=== PATIENT | female | born 1995 | race Hispanic/Latino ===

== ENCOUNTER 2019-12-20 06:31 | Emergency (ER) | payer BC ==
--- OUTSIDE RECORDS SUMMARY | 2019-12-20 06:33 | XMS REPORT | Summary of Care ---
:1995 Author Organization [facility] Address [address] [place] [address] Care Team Providers Name Role Phone Pcp, Patient Does Not Have A Primary Care Provider +[id number] 0-0000 Reason for Visit Reason Comments ROUTINE VISIT Encounter Details Date Type Department Care Team Description 11/30/2019 Routine [facility] Women's Alessia Ren, Encounter for supervision of normal first in third trimester (Primary Dx); Visit Healthcare Group- 28 weeks gestation of ; [place] [address] Need for diphtheria-tetanus- pertussis (Tdap) vaccine; [address] [facility] [address] Heartburn during in third [facility] [address] [place] [address] [phone] Allergies No Known Allergiesdocumented as of this encounter (statuses as of 12/01/2019) Medications Medication Sig Dispensed Refills Start Date End Date Status clindamycin phosphate 1 Apply to 0 Active % glqd area(s). vit/iron Take by mouth. 0 Active fum/folic ac ( 1 + 1 ORAL) famotidine 20 mg Take 1 tablet by 60 tablet 2 12/01/2019 Active tabletIndications: mouth 2 (two) Heartburn during times daily as in third needed for trimester Heartburn. documented as of this encounter (statuses as of 12/01/2019) Active Problems Estimated Date of Delivery Comments Yes 02/19/2020 Based on Ultrasound, Entered from OB Ultrasound Reporting. No known active problemsdocumented as of this encounter (statuses as of 12/01/2019) Immunizations Name Administration Dates Next Due TDAP 11/30/2019 documented as of this encounter Social History Tobacco Use Types Packs/Day Years Used Date Never Smoker Smokeless Tobacco: Never Used Alcohol Use Drinks/Week oz/Week Comments Not Currently 0 Standard drinks or equivalent 0.0 rare Estimated Date of Delivery Comments Yes 02/19/2020 Based on Ultrasound, Entered from OB Ultrasound Reporting. Sex Assigned at Date Recorded Not on file COVID-19 Exposure Response Date Recorded In the last month, have you been in contact with No / Unsure 11/30/2019 3:46 PM CDT someone who was confirmed or suspected to have Coronavirus / COVID-19? documented as of this encounter Last Filed Vital Signs Vital Sign Reading Time Taken Comments Blood Pressure 110/67 11/30/2019 3:33 PM CDT Pulse 84 11/30/2019 3:33 PM CDT Temperature - - Respiratory Rate - - Oxygen Saturation - - Inhaled Oxygen Concentration - - Weight 64.5 kg (142 lb 4.8 oz) 11/30/2019 3:33 PM CDT Height 162.6 cm (5' 4") 11/30/2019 3:33 PM CDT Body Mass Index 24.43 11/30/2019 3:33 PM CDT documented in this encounter Miscellaneous Notes OB Summary Note - Alessia Ren MD - 11/30/2019 3:30 PM CDTAge: 24 year old GA: 28w3d Routine visit. C/o occasional RUQ pain, increased nausea and GERD symptoms. She is not taking any meds for nausea/GERD. Thinks RUQ pain may be due to pressure of baby on ribs, as only occurs when she is sitting, and stretching to side relievs thee pain. Denies HAs, N/V, abdominal pain, ctx, vag bleeding, leakage of fluid. +Active movements. FH: 28 cm FHT: 155 bpm - Tdap given today. - 1-hr GTT/CBC/HIV/syph drawn today. - Pepcid prescribed for GERD/nausea. - Discussed epidural/pain management options during labor per patient's questions. - RTC in 2-4 weeks. Alessia Ren MD 11/30/2019 3:47 PM ddendum Note - Alessia Ren MD - 11/30/2019 3:30 PM CDT Addended by: ALESSIA REN MD on: 12/01/2019 11:13 AM Modules accepted: Orders documented in this encounter Plan of Treatment Date Type Specialty Care Team Description 12/21/2019 Routine Obstetrics & Alessia Ren MD Visit Gynecology [address] [address] [address] [place], [place] [address] [phone] Name Type Priority Associated Diagnoses Date/Ti me GALV ONLY - SYPHILIS LAB Routine 28 weeks gestation o f 11/30/2019 4:42 PM CDT IGG/IGM Name Type Priority Associated Diagnoses Order S chedule GALV ONLY - SYPHILIS LAB Routine 28 weeks gestation o f 1 Occurrences starting IGG/IGM 11/30/2019 unti l 11/29/2020 Health Maintenance Due Date Last Done Comments INFLUENZA VACCINE (#1) 2019 CHLAMYDIA SCREENING 06/27/2020 06/28/2019, 03/30/2017, 11/24/2015 HPV VACCINES (1 - 2-dose 09/16/2020 Postpon ed from 2006 series) ( or ) Depression Screening 10/25/2020 10/26/2019 PAP SMEAR 06/27/2022 06/28/2019, 03/30/2017 DTaP,Tdap,and Td Vaccines (2 11/29/2029 11/30/2019 - Td) PNEUMOCOCCAL 0-64 YEARS Aged Out No longe r eligible based COMBINED SERIES on patient's age to complete this to pic documented as of this encounter Procedures Procedure Name Priority Date/Time Associated Diagnosis Comme nts HIV 1/2 AG-AB WITH Routine 11/30/2019 4:42 PM 28 weeks gestat ion Results for this REFLEX CDT of procedure are i n the results section. CBC WITH DIFF Routine 11/30/2019 4:42 PM 28 weeks gestation R esults for this CDT of procedure are i n the results section. GLUCOSE 1 HOUR POST Routine 11/30/2019 4:42 PM 28 weeks gesta tion Results for this PRANDIAL CDT of procedure are i n the results section. TDAP VACCINE, >11 Routine 11/30/2019 3:47 PM 28 weeks gestati on YRS, IM CDT of documented in this encounter Results HIV 1/2 AG-AB WITH REFLEX (11/30/2019 4:42 PM CDT) Pathologist Sig [facility] HIV 1/2 Ag-Ab with Negative Negative [facility] Reflex SERVICES HIV Semi-quantitative 0.06 [facility] Specimen Blood - VENOUS Narrative Performed At Non-reactive for HIV-1 antigen and HIV-1/HIV-2 antibod ies. [facility] No laboratory evidence of HIV infection. Repeat in 2-4 weeks if acute HIV infection is suspected. Performing Organization Address City/State/Zipcode Phone Number [facility] CLIA: [id number] [place] [address] [place] [address] GLUCOSE 1 HOUR POST PRANDIAL (11/30/2019 4:42 PM CDT) Pathologist Sig [facility] GLUC 1 HR 124 120 - 170 mg/dL [facility] Specimen Blood - VENOUS Performing Organization Address City/[facility]/Zipcode Phone Number [facility] CLIA: [id number] [place] [address] [place] [address] CBC WITH DIFF (11/30/2019 4:42 PM CDT) Pathologist Sig [facility] WBC 10.42 4.30 - 11.10 [facility] 10*3/L SERVICES RBC 3.76 (L) 3.93 - 5.25 [facility] 10*6/L SERVICES HGB 11.3 (L) 11.6 - 15.0 [facility] g/dL SERVICES HCT 34.2 (L) 35.7 - 45.2 % [facility] MCV 91.0 80.6 - 95.5 fL [facility] SERVICES MCH 30.1 25.9 - 32.8 pg [facility] MCHC 33.0 31.6 - 35.1 [facility] g/dL SERVICES RDW-SD 40.8 39.0 - 49.9 fL [facility] SERVICES RDW-CV 12.3 12.0 - 15.5 % [facility] SERVICES PLT 342 166 - 358 [facility] 10*3/L SERVICES MPV 9.8 9.5 - 12.9 fL [facility] NRBC/100 WBC 0.0 0.0 - 10.0 /100 [facility] WBCs SERVICES NRBC x10^3 <0.01 10*3/L [facility] SERVICES GRAN MAT (NEUT) % 69.8 % [facility] IMM GRAN % 0.70 % [facility] LYMPH % 22.2 % [facility] MONO % 5.8 % [facility] EOS % 1.2 % [facility] BASO % 0.3 % [facility] GRAN MAT x10^3(ANC) 7.29 (H) 1.88 - 7.09 [facility] 10*3/uL SERVICES IMM GRAN x10^3 0.07 (H) 0.00 - 0.06 [facility] 10*3/uL SERVICES LYMPH x10^3 2.31 1.32 - 3.29 [facility] 10*3/uL SERVICES MONO x10^3 0.60 0.33 - 0.92 [facility] 10*3/uL SERVICES EOS x10^3 0.12 0.03 - 0.39 [facility] 10*3/uL SERVICES BASO x10^3 0.03 0.01 - 0.07 [facility] 10*3/uL SERVICES Specimen Blood - VENOUS Performing Organization Address City/State/Zipcode Phone Number [facility] CLIA: [id number] [place] [address] [place] [address] documented in this encounter Visit Diagnoses Diagnosis Encounter for supervision of normal firs t in third trimester - Primary Supervision of normal first 28 weeks gestation of state, incidental Need for whlnosbler-yahtinh-twwswjsqr (T dap) vaccine Need for prophylactic vaccination with c ombined kruxgdcyql-pophvta-eqtqqqtcm (DTP) vaccine Heartburn during in third trim caden documented in this encounter Insurance Payer Benefit Plan Subscriber ID Effective Dates Phone Address Type / Group [facility] [id number] 2017-Nati [phone] [address] PPO/POS [place] - OUT OF 7 [id number] [place] [address] (Work) [id number] documented as of this encounter
--- OUTSIDE RECORDS SUMMARY | 2019-12-20 06:33 | XMS REPORT | Summary of Care ---
:1995 Author Organization [facility] Address [address] [place] [address] Care Team Providers Name Role Phone Pcp, Patient Does Not Have A Primary Care Provider +1-000-00 0-0000 Reason for Visit Reason Comments ROUTINE VISIT Encounter Details Date Type Department Care Team Description 11/30/2019 Routine [facility] Women's Nedra Ramsey, Encounter for supervision of normal first in third trimester (Primary Dx); Visit Healthcare Group- 28 weeks gestation of ; [place] [address] Need for diphtheria-tetanus- pertussis (Tdap) vaccine [address] [facility] [address], [address] [place] [phone] Allergies No Known Allergiesdocumented as of this encounter (statuses as of 11/30/2019) Medications Medication Sig Dispensed Refills Start Date End Date Status clindamycin phosphate 1 Apply to 0 Active % glqd area(s). vit/iron Take by mouth. 0 Active fum/folic ac ( 1 + 1 ORAL) documented as of this encounter (statuses as of 11/30/2019) Active Problems Estimated Date of Delivery Comments Yes 02/19/2020 Based on Ultrasound, Entered from OB Ultrasound Reporting. No known active problemsdocumented as of this encounter (statuses as of 11/30/2019) Immunizations Name Administration Dates Next Due TDAP [...] encounter Miscellaneous Notes OB Summary Note - Nedra Ramsey MD - 11/30/2019 3:30 PM CDTAge: 24 year old GA: 28w3d Routine visit. No complaints today - denies HAs, N/V, abdominal pain, ctx, vag bleeding, leakage of fluid. +Active movements. FH: 28 cm FHT: 155 bpm - Tdap given today. - 1-hr GTT/CBC/HIV/syph drawn today. - Discussed epidural/pain management options during labor per patient's questions. - RTC in 2-4 weeks. Nedra Ramsey MD 11/30/2019 3:47 PM documented in this encounter Plan of Treatment Date Type Specialty Care Team Description 12/21/2019 Routine Obstetrics & Nedra Ramsey MD Visit Gynecology [address] [address] [address] [place], [place] [address] [phone] Name Type Priority Associated Diagnoses Date/Ti me CBC WITH DIFF LAB Routine 28 weeks gestation of 11/29 4:42 PM CDT GLUCOSE 1 HOUR POST LAB Routine 28 weeks gestation of 11/30/2019 4:42 PM CDT PRANDIAL HIV 1/2 AG-AB WITH LAB Routine 28 weeks gestation of 11/30/2019 4:42 PM CDT REFLEX GALV ONLY - SYPHILIS LAB Routine 28 weeks gestation o f 11/30/2019 4:42 PM CDT IGG/IGM Name Type Priority Associated Diagnoses Order S chedule CBC WITH DIFF LAB Routine 28 weeks gestation of Expec anastasiia: 11/30/2019, Expires: 2020 GLUCOSE 1 HOUR POST LAB Routine 28 weeks gestation of Expected: 11/30/2019, PRANDIAL Expires: 2020 HIV 1/2 AG-AB WITH LAB Routine 28 weeks gestation of 1 Occurrences starting REFLEX 11/30/2019 unti l 11/29/2020 GALV ONLY - SYPHILIS LAB Routine 28 weeks gestation o f 1 Occurrences starting IGG/IGM 11/30/2019 unti l 11/29/2020 Health Maintenance Due Date Last Done Comments INFLUENZA VACCINE (#1) 2019 CHLAMYDIA SCREENING 06/27/2020 06/28/2019, 03/30/2017, 11/24/2015 DTaP,Tdap,and Td Vaccines (1 06/27/2020 Pos tponed from 2014 - Tdap) (Alternative Zoran delines) HPV VACCINES (1 - 2-dose 09/16/2020 Postpon ed from 2006 series) ( or ) Depression Screening 10/25/2020 10/26/2019 PAP SMEAR 06/27/2022 06/28/2019, 03/30/2017 PNEUMOCOCCAL 0-64 YEARS Aged Out No longe r eligible based COMBINED SERIES on patient's age to complete this to [facility] documented as of this encounter Procedures Procedure Name Priority Date/Time Associated Diagnosis Comme nts TDAP VACCINE, >11 YRS, Routine 11/30/2019 3:47 PM 28 weeks [address] station of IM CDT documented in this encounter Results Not on filedocumented in this encounter Visit Diagnoses Diagnosis Encounter for supervision of normal firs t in third trimester - Primary Supervision of normal first 28 weeks gestation of state, incidental Need for owcwxjlcdu-gszsvfx-zlqtlzcte (T dap) vaccine Need for prophylactic vaccination with c ombined tjikwwkovr-pqfuueb-stlfarrsg (DTP) vaccine documented in this encounter Insurance Payer Benefit Plan Subscriber ID Effective Dates Phone Address Type / Group [facility] [id number] 2017-Nati [phone] [address] PPO/POS [place] - OUT OF nt 7 [id number] [place] [address] (Work) [id number] documented as of this encounter
--- OUTSIDE RECORDS SUMMARY | 2019-12-20 06:33 | XMS REPORT | Summary of Care ---
:1995 Author Organization [facility] Address [address] [place] [address] Care Team Providers Name Role Phone Pcp, Patient Does Not Have A Primary Care Provider +1-000-00 0-0000 Reason for Visit Reason Comments ROUTINE VISIT Encounter Details Date Type Department Care Team Description 10/26/2019 Routine [facility] Women's Nichole Piper Encounter for Visit Health Care, TYREE Vaughn supervision of [address] first [address] [facility]. in second 3rd Floor [place], [place] trimester ([place] [phone] Dx) [phone] Allergies No Known Allergiesdocumented as of this encounter (statuses as of 10/26/2019) Medications Medication Sig Dispensed Refills Start Date End Date Status clindamycin phosphate 1 Apply to 0 Active % glqd area(s). vit/iron Take by mouth. 0 Active fum/folic ac ( 1 + 1 ORAL) documented as of this encounter (statuses as of 10/26/2019) Active Problems Estimated Date of Delivery Comments Yes 02/19/2020 Based on Ultrasound, Entered from OB Ultrasound Reporting. No known active problemsdocumented as of this encounter (statuses as of 10/26/2019) Social History Tobacco Use Types Packs/Day Years Used Date Never Smoker Smokeless Tobacco: Never Used Alcohol Use Drinks/Week oz/Week Comments Not Currently 0 Standard drinks or equivalent 0.0 rare Estimated Date of Delivery Comments Yes 02/19/2020 Based on Ultrasound, Entered from OB Ultrasound Reporting. Sex Assigned at Date Recorded Not on file Job Start Date Occupation Industry Not on file Not on file Not on file Travel History Travel Start Travel End No recent travel history available. COVID-19 Exposure Response Date Recorded In the last month, have you been in contact with No / Unsure 10/26/2019 10:08 AM CDT someone who was confirmed or suspected to have Coronavirus / COVID-19? documented as of this encounter Last Filed Vital Signs Vital Sign Reading Time Taken Comments Blood Pressure 106/61 10/26/2019 10:37 AM CDT Pulse 76 10/26/2019 10:37 AM CDT Temperature 36.9 C (98.4 F) 10/26/2019 10:37 AM CDT Respiratory Rate - - Oxygen Saturation - - Inhaled Oxygen Concentration - - Weight 60.7 kg (133 lb 12.8 oz) 10/26/2019 10:37 AM CDT Height 162.6 cm (5' 4") 10/26/2019 10:37 AM CDT Body Mass Index 22.97 10/26/2019 10:37 AM CDT documented in this encounter Plan of Treatment Date Type Specialty Care Team Description 11/30/2019 Routine Obstetrics & Nedra Ramsey MD Visit Gynecology [address] [address] [address] [place], [place] [address] Health Maintenance Due Date Last Done Comments INFLUENZA VACCINE (#1) 2019 CHLAMYDIA SCREENING 06/27/2020 06/28/2019, 03/30/2017, 11/24/2015 DTaP,Tdap,and Td Vaccines (1 06/27/2020 Pos tponed from 2006 - Tdap) (Alternative Zoran delines) HPV VACCINES (1 - Female 09/16/2020 Postpon ed from 2006 2-dose series) ( or ) Depression Screening 10/25/2020 10/26/2019 PAP SMEAR 06/27/2022 06/28/2019, 03/30/2017 PNEUMOCOCCAL 0-64 YEARS Aged Out No longe r eligible based COMBINED SERIES on patient's age to complete this to pic documented as of this encounter Procedures Procedure Name Priority Date/Time Associated Diagnosis Comme nts POCT URINALYSIS AUTO Routine 10/26/2019 11:22 Encounter for Re sults for this AM CDT supervision of procedure are in normal first the results in second section. trimester documented in this encounter Results POCT URINALYSIS, INSTRUMENT (10/26/2019 11:22 AM CDT) Pathologist Sig nature POCT U SP GRAV 1.005 1.005 - 1.025 mg/dl POCT PH U 7.0 5 - 8 mg/dl POCT U LEUK EST Negative Negative - Negative POCT U NIT Negative Negative - Negative POCT U PROT Negative Negative - Negative POCT U GLU Negative Negative - Negative POCT U KETONE Negative Negative - Negative POCT U UROBILI 0.2 0.2 - 1 mg/dl POCT U BILI Negative Negative - Negative POCT U BLD Negative Negative - Negative POCT U COLOR POCT U APPEAR Specimen Urine - URINE, UNSPECIFIED SOURCE documented in this encounter Visit Diagnoses Diagnosis Encounter for supervision of normal firs t in second trimester - Primary Supervision of normal first documented in this encounter Insurance Payer Benefit Plan Subscriber ID Effective Dates Phone Address Type / Group [facility] [id number] 2017-Nati [phone] [address] PPO/POS [place] - OUT OF nt 7 [id number] [place] [address] (Work) [id number] documented as of this encounter
--- OUTSIDE RECORDS SUMMARY | 2019-12-20 06:33 | XMS REPORT | Summary of Care ---
:1995 Author Organization [facility] Address [address] [place] [address] Care Team Providers Name Role Phone Pcp, Patient Does Not Have A Primary Care Provider +1-000-00 0-0000 Reason for Visit Reason Comments Assessment Encounter Details Date Type Department Care Team Description 10/05/2019 Telephone [facility] Women's Nguyen Ramsey MD Assessment Healthcare [facility]- [address] [place] [address] [address] [place] [address] [phone] Allergies No Known Allergiesdocumented as of this encounter (statuses as of 10/05/2019) Medications Medication Sig Dispensed Refills Start Date End Date Status clindamycin phosphate 1 Apply to 0 Active % glqd area(s). vit/iron Take by mouth. 0 Active fum/folic ac ( 1 + 1 ORAL) documented as of this encounter (statuses as of 10/05/2019) Active Problems Estimated Date of Delivery Comments Yes 02/19/2020 Based on Ultrasound, Entered from OB Ultrasound Reporting. No known active problemsdocumented as of this encounter (statuses as of 10/05/2019) Social History Tobacco Use Types Packs/Day Years [...] been in contact with No / Unsure 09/26/2019 4:08 PM CDT someone who was confirmed or suspected to have Coronavirus / COVID-19? documented as of this encounter Last Filed Vital Signs Not on filedocumented in this encounter Plan of Treatment Date Type Specialty Care Team Description 10/24/2019 Routine Obstetrics & Nedra Ramsey MD Visit Gynecology [address] [facility] [address] [place], [place] [address] [phone] Health Maintenance Due Date Last Done Comments INFLUENZA VACCINE (Season 12/11/2019 Ended) CHLAMYDIA SCREENING 06/27/2020 06/28/2019, 03/30/2017, 11/24/2015 DTaP,Tdap,and Td Vaccines (1 06/27/2020 Pos tponed from 2006 - Tdap) (Alternative Zoran delines) Depression Screening 07/11/2020 07/12/2019 HPV VACCINES (1 - Female 09/16/2020 Postpon ed from 2006 2-dose series) ( or ) PAP SMEAR 06/27/2022 06/28/2019, 03/30/2017 PNEUMOCOCCAL 0-64 YEARS Aged Out No longe r eligible based COMBINED SERIES on patient's age to complete this to [facility] documented as of this encounter Results Not on filedocumented in this encounter Insurance Payer Benefit Plan Subscriber ID Effective Dates Phone Address Type / Group [facility] [id number] 2017-Nati [phone] [address] PPO/POS [place] - OUT OF nt 7 [id number] [place] [address] documented as of this encounter
--- OUTSIDE RECORDS SUMMARY | 2019-12-20 06:33 | XMS REPORT | Summary of Care ---
:1995 Author Organization [facility] Address [address] [place] [address] Care Team Providers Name Role Phone Pcp, Patient Does Not Have A Primary Care Provider +1-000-00 0-0000 Reason for Visit Reason Comments ULTRASOUND (Routine) Status Reason Specialty Diagnoses / Referred By Referred To Procedures Contact Contact Authorized Maternal Diagnoses Encounter for supervision of normal first in second trimester Nedra Ramsey, Medicine Procedures CONSULT MATERNAL MEDICINE ULTRASOUND Preferred Location: (patient preference) [address] [address] [address] [place] [address] Encounter Details Date Type Department Care Team Description 09/26/2019 Last Picker Visit [facility] Women's WatsonJovan MD [address] [facility] [id number] [place] [address] Suspected damage to fetus from disease i n mother, antepartum condition, single or unspecified fetus; [address] Usg Room Encounter for screening for risk of pre- term labor [facility] [address] [place] [address] Allergies No Known Allergiesdocumented as of this encounter (statuses as of 09/26/2019) Medications Medication Sig Dispensed Refills Start Date End Date Status clindamycin phosphate 1 Apply to 0 Active % glqd area(s). vit/iron Take by mouth. 0 Active fum/folic ac ( 1 + 1 ORAL) documented as of this encounter (statuses as of 09/26/2019) Active Problems Estimated Date of Delivery Comments Yes 02/19/2020 Based on Ultrasound, Entered from OB Ultrasound Reporting. No known active problemsdocumented as of this encounter (statuses as of 09/26/2019) Social History Tobacco Use Types Packs/Day Years [...] in contact with No / Unsure 09/26/2019 1:14 PM CDT someone who was confirmed or suspected to have Coronavirus / COVID-19? documented as of this encounter Last Filed Vital Signs Not on filedocumented in this encounter Plan of Treatment Date Type Specialty Care Team Description 09/26/2019 Routine Obstetrics & Nedra Ramsey MD Visit Gynecology [address] [address] [address] [place], [place] [address] [phone] Health Maintenance Due Date Last Done Comments HPV VACCINES (1 - Female 2006 2-dose series) INFLUENZA VACCINE (Season 12/11/2019 Ended) CHLAMYDIA SCREENING 06/27/2020 06/28/2019, 03/30/2017, 11/24/2015 DTaP,Tdap,and Td Vaccines (1 06/27/2020 Pos tponed from 2006 - Tdap) (Alternative Zoran delines) Depression Screening 07/11/2020 07/12/2019 PAP SMEAR 06/27/2022 06/28/2019, 03/30/2017 PNEUMOCOCCAL 0-64 YEARS Aged Out No longe r eligible based COMBINED SERIES on patient's age to complete this to pic documented as of this encounter Results Not on filedocumented in this encounter Visit Diagnoses Diagnosis Suspected damage to fetus from disease i n mother, antepartum condition, single or unspecified fetus Encounter for screening for risk of pre- term labor documented in this encounter Insurance Payer Benefit Plan Subscriber ID Effective Dates Phone Address Type / Group [facility] [id number] 2017-Nati [phone] [address] PPO/POS [place] - OUT OF 7 [id number] [place] [address] (Work) [phone] documented as of this encounter
--- OUTSIDE RECORDS SUMMARY | 2019-12-20 06:33 | XMS REPORT | Summary of Care ---
:1995 Author Organization [facility] Address [address] [place] [address] Care Team Providers Name Role Phone Pcp, Patient Does Not Have A Primary Care Provider +1-000-00 0-0000 Reason for Visit Reason Comments Notification Encounter Details Date Type Department Care Team Description 11/19/2019 Telephone [facility] Women's Nguyen Ramsey MD Notification Healthcare Group- [address] [address] [address] [place] [address] [address] [place] [address] 6-5431 [phone] Allergies No Known Allergiesdocumented as of this encounter (statuses as of 11/19/2019) Medications Medication Sig Dispensed Refills Start Date End Date Status clindamycin phosphate 1 Apply to 0 Active % glqd area(s). vit/iron Take by mouth. 0 Active fum/folic ac ( 1 + 1 ORAL) documented as of this encounter (statuses as of 11/19/2019) Active Problems Estimated Date of Delivery Comments Yes 02/19/2020 Based on Ultrasound, Entered from OB Ultrasound Reporting. No known active problemsdocumented as of this encounter (statuses as of 11/19/2019) Social History Tobacco Use Types Packs/Day Years [...] Signs Not on filedocumented in this encounter Miscellaneous Notes Telephone Encounter - Laurie Tapia RN - 11/19/2019 1:54 PM CDTPatient ID by name and . Patient states that she is taking a "Babymoon" to [place] for 3 days. Let patient know that with COVID, we don't recommend travel, but if she does, not internationally, but since she is going to [place], as long as it is before 36 weeks, it is okay. Did tell the patient to take all COVID travel precautions, and to try to walk around some on the plane. Patient verifies understanding and has no other questions or concerns. Telephone Encounter - Barbra Ray - 11/19/2019 1:51 PM CDTThe patient plan on taking 4 hour flight and wants to know at what point of her can she not travel. She has a trip planned when she will be 33 weeks and wants to know if that's ok documented in this encounter Plan of Treatment Date Type Specialty Care Team Description 11/30/2019 Routine Obstetrics & Nedra Ramsey MD Visit Gynecology [id number] [place] [address] [address] [place], [place] [address] [phone] Health Maintenance Due Date Last Done Comments [...] on patient's age to complete this to [facility] documented as of this encounter Results Not on filedocumented in this encounter Insurance Payer Benefit Plan Subscriber ID Effective Dates Phone Address Type / Group BCBS OF [facility] [id number] 2017-Nati [phone] [address] PPO/POS [place] - OUT OF nt 7 [id number] [place] [address] documented as of this encounter
--- OUTSIDE RECORDS SUMMARY | 2019-12-20 06:33 | XMS REPORT | Summary of Care ---
:1995 Author Organization [facility] Address [address] [place] [address] Care Team Providers Name Role Phone Pcp, Patient Does Not Have A Primary Care Provider +1-000-00 0-0000 Reason for Visit Reason Comments ROUTINE VISIT Encounter Details Date Type Department Care Team Description 09/26/2019 Routine [facility] Women's Nedra Ramsey, Encounter for supervision of normal first in second trimester (Primary Dx); Visit Health Care, Rita AVILA 19 weeks gestation of [address], [address] [place] [phone] Allergies No Known Allergiesdocumented as of this encounter (statuses as of 09/27/2019) Medications Medication Sig Dispensed Refills Start Date End Date Status clindamycin phosphate 1 Apply to 0 Active % glqd area(s). vit/iron Take by mouth. 0 Active fum/folic ac ( 1 + 1 ORAL) documented as of this encounter (statuses as of 09/27/2019) Active Problems Estimated Date of Delivery Comments Yes 02/19/2020 Based on Ultrasound, Entered from OB Ultrasound Reporting. No known active problemsdocumented as of this encounter (statuses as of 09/27/2019) Social History Tobacco Use Types Packs/Day Years [...] Sign Reading Time Taken Comments Blood Pressure 126/61 09/26/2019 4:09 PM CDT Pulse 80 09/26/2019 4:09 PM CDT Temperature 37.1 C (98.8 F) 09/26/2019 4:09 PM CDT Respiratory Rate - - Oxygen Saturation - - Inhaled Oxygen Concentration - - Weight 59.2 kg (130 lb 8 oz) 09/26/2019 4:09 PM CDT Height 162.6 cm (5' 4") 09/26/2019 4:09 PM CDT Body Mass Index 22.4 09/26/2019 4:09 PM CDT documented in this encounter Plan of Treatment Date Type Specialty Care Team Description 10/24/2019 Routine Obstetrics & Nedra Ramsey MD Visit Gynecology [address] [address] [address] [place], [place] [address] Health Maintenance Due Date Last [...] on patient's age to complete this to [facility] documented as of this encounter Procedures Procedure Name Priority Date/Time Associated Diagnosis Comme nts SECOND AND THIRD Routine 09/26/2019 2:12 PM TRIMESTER ULTRASOUND CDT documented in this encounter Results SECOND AND THIRD TRIMESTER ULTRASOUND (09/26/2019 2:12 PM CDT) Specimen documented in this encounter Visit Diagnoses Diagnosis Encounter for supervision of normal firs t in second trimester - Primary Supervision of normal first 19 weeks gestation of state, incidental documented in this encounter Insurance Payer Benefit Plan Subscriber ID Effective Dates Phone Address Type / Group [facility] [id number] 2017-Nati [phone] [address] PPO/POS [place] - OUT OF nt 7 [id number] [place] [address] (Work) [id number] documented as of this encounter
--- OUTSIDE RECORDS SUMMARY | 2019-12-20 06:33 | XMS REPORT | Summary of Care ---
:1995 Author Organization [facility] Address [address] [place] [address] Care Team Providers Name Role Phone Pcp, Patient Does Not Have A Primary Care Provider +1-000-00 0-0000 Reason for Visit Reason Comments ROUTINE VISIT Encounter Details Date Type Department Care Team Description 09/26/2019 Routine [facility] Women's Nedra Ramsey, Encounter for supervision of normal first in second trimester (Primary Dx); Visit Health Care, Rita AVILA 19 weeks gestation of [address], [address] [place] [address] [phone] Allergies No Known Allergiesdocumented as of this [...] Obstetrics & Nedra Ramsey MD Visit Gynecology [address] [address] [address] [place], [place] [address] Health Maintenance Due Date Last [...] on patient's age to complete this to [facility] documented as of this encounter Procedures Procedure [...] Effective Dates Phone Address Type / Group [facility] [id number] 2017-Nati [phone] [address] PPO/POS [place] - OUT OF nt 7 [id number] [place] [address] (Work) [id number] documented as of this encounter
--- OUTSIDE RECORDS SUMMARY | 2019-12-20 06:34 | XMS REPORT | Summary of Care ---
:1995 Author Organization [facility] Address [address] [place] [address] Care Team Providers Name Role Phone Pcp, Patient Does Not Have A Primary Care Provider +1-000-00 0-0000 Reason for Visit Reason Comments Results Encounter Details Date Type Department Care Team Description 12/13/2019 Telephone [facility] Women's Nguyen Ramsey MD Results Healthcare Group- [address] [address] [address] 150[address] [place] [address] [address] [place] [address] 6-[address]31 [phone] Allergies No Known Allergiesdocumented as of this encounter (statuses as of 12/13/2019) Medications Medication Sig Dispensed Refills Start Date End Date Status clindamycin phosphate 1 Apply to 0 Active % glqd area(s). vit/iron Take by mouth. 0 Active fum/folic ac ( 1 + 1 ORAL) famotidine 20 mg Take 1 tablet by 60 tablet 2 12/01/2019 Active tabletIndications: mouth 2 (two) Heartburn during times daily as in third needed for trimester Heartburn. SERTraline 25 mg Take 1 tablet by 30 tablet 2 12/02/2019 Active tabletIndications: 28 mouth daily. weeks gestation of , Anxiety and depression documented as of this encounter (statuses as of 12/13/2019) Active Problems Estimated Date of Delivery Comments Yes 02/19/2020 Based on Ultrasound, Entered from OB Ultrasound Reporting. No known active problemsdocumented as of this encounter (statuses as of 12/13/2019) Immunizations Name Administration Dates Next Due TDAP [...] Telephone Encounter - Laurie Tapia RN - 12/13/2019 11:15 AM CDTPatient ID by name and . Patient calling to ask about her bp from her last visit, which was 110/67. Patient states that she has increased her water intake significantly to get ready for her 4D ultrasound tonight and is now experiencing an increase in swelling her feet/ankles. 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 Denies JARA, blurred vision, etc. Told patient that shifts in fluid during the third trimester, increase in water, and being on her feet can cause this. Patient just needs to monitor for increase in symptoms, or any additional symptoms. Patient verbalized understanding and agrees to plan of care Telephone Encounter - Marlyn Helton - 12/13/2019 11:02 AM CDTAmelissa Perez is a 24 year old female Patient is requesting to speak with nurse regarding results and blodd pressure reading from last appointment. Please contact at [phone] (home) documented in this encounter Plan of Treatment Date Type Specialty Care Team Description 12/21/2019 Routine Obstetrics & Nedra Ramsey MD Visit Gynecology [address] [address] [address] [place] [address] [phone] Health Maintenance Due Date Last Done Comments [...] on patient's age to complete this to [facility] documented as of this encounter Results Not on filedocumented in this encounter Insurance Payer Benefit Plan Subscriber ID Effective Dates Phone Address Type / Group BCBS OF [facility] [id number] 2017-Nati [phone] [address] PPO/POS [place] - OUT OF nt 7 [id number] [place] [address] documented as of this encounter
--- OUTSIDE RECORDS SUMMARY | 2019-12-20 06:34 | XMS REPORT | Continuity of Care Document ---
:1995 Author Organization [facility] t Address [address] [place] [address] Care Team Providers Name Role Phone Nedra Ramsey MD Attending Clinician Emilie AVILA, Randolph Bruner Attending Clinician Problems This patient has no known problems. Allergies, Adverse Reactions, Alerts This patient has no known allergies or adverse reactions. Medications This patient has no known medications. Procedures This patient has no known procedures. Encounters Start End Encounter Admission Attending Care Care Encounter Source Date/Time Date/Time Type Type Clinicians Facility Department ID 2019-12-13 2019-12-13 Telephone MARYAN Ramsey [id number] 00:00:00 00:00:00 Ned[facility] [id number] [facility] [id number] Group [phone] [address] 2019-12-02 2019-12-02 Telephone Emilie VTROMA [id number] 00:00:00 00:00:00 [facility] [employer] [id number] Franc [place] [id number] [place] [phone] [place] [address] ([facility]) 2019-11-30 2019-12-01 Routine Braulio VTROMA [id number] 15:28:45 11:13:48 Nedra Women's [id number] Visit [facility] [id number] e Group [phone] [address] Results This patient has no known results.
--- OUTSIDE RECORDS SUMMARY | 2019-12-20 06:34 | XMS REPORT | Summary of Care ---
:1995 Author Organization [facility] [employer] Address [address] [place] [address] Care Team Providers Name Role Phone Pcp, Patient Does Not Have A Primary Care Provider +1-000-00 0-0000 Reason for Referral (Routine) Status Reason Specialty Diagnoses / Referred By Referred To Procedures Contact Contact New Request Psychology, Diagnoses 28 weeks gestation of Anxiety and depression Randolph Phan Clinical Child & Procedures CONSULT/REFERRAL [facility] MED PSYCHOLOGY/MENTAL HEALTH MD Franc Adolescent [address] [address] Reason for Visit Reason Comments Anxiety Encounter Details Date Type Department Care Team Description 12/02/2019 Telephone [facility] Labor and Randolph Phan Anxi ety; Delivery Unit CLC 5A MD Franc [address] [place] [address] [address] Allergies No Known Allergiesdocumented as of this encounter (statuses as of 12/02/2019) Medications Medication Sig Dispensed Refills Start Date [...] as of this encounter (statuses as of 12/02/2019) Active Problems Estimated Date of Delivery Comments Yes 02/19/2020 Based on Ultrasound, Entered from OB Ultrasound Reporting. No known active problemsdocumented as of this encounter (statuses as of 12/02/2019) Immunizations Name Administration Dates Next Due TDAP [...] this encounter Miscellaneous Notes Telephone Encounter - Randolph Phan MD - 12/02/2019 12:58 PM CDT Patient is a 24 year old year old female, , 28w5d weeks of gestation and EDC of 02/19/2020, by Ultrasound. Patient called for worsen anxiety symptoms and palpitations. Patient is safe and is not suicidal or have suicidal thoughts Patient reports the symptoms are getting worse. A/P: iup at 28w5d. Anxiety: will check TSH, referral to therapy, start zoloft 25mg daily Encourage patient to discuss symptoms with patient. May also need cardiac workup. Randolph Phan MD 12/02/2019 1:01 PM documented in this encounter Plan of Treatment Date Type Specialty Care Team Description 12/21/2019 Routine Obstetrics & Nedra Ramsey MD Visit Gynecology [address] [address] [address] [place], [place] [address] [phone] Name Type Priority Associated Diagnoses Order S chedule THYROID STIMULATING LAB Add-on 28 weeks gestation of Expected: 12/02/2019, HORMONE Expires: 12/01/2020 Anxiety and depression FREE T4 LAB Add-on 28 weeks gestation of Expect ed: 12/02/2019, Expires: 12/01/2020 Anxiety and depression Health Maintenance Due Date Last Done Comments [...] on patient's age to complete this to [facility] documented as of this encounter Results Not on filedocumented in this encounter Visit Diagnoses Diagnosis 28 weeks gestation of - Primar y state, incidental Anxiety and depression Dysthymic disorder documented in this encounter Insurance Payer Benefit Plan Subscriber ID Effective Dates Phone Address Type / Group [facility] [id number] 2017-Nati [phone] [address] PPO/POS [place] - OUT OF nt 7 [id number] [place] [address] documented as of this encounter
--- NOTE | 2019-12-20 07:35 | ER ---
Nurse's Notes [facility] Name: Gale Perez Age: 24 yrs Sex: Female : 1995 Arrival Date: 12/20/2019 Time: 06:36 Bed 6 Private MD: Diagnosis: Displaced fracture of base of fifth metacarpal bone, right hand Presentation: 12/19 06:46 Chief complaint: Patient states: PER PT SLAMMED RIGHT HAND ON DOOR. IS 31 WEEKS mt2 . HAND NUMB FORM WRIST TO FOREARM. Ebola Screen: No symptoms or risks identified at this time. Initial Sepsis Screen: Does the patient meet any 2 criteria? No. Patient's initial sepsis screen is negative. Does the patient have a suspected source of infection? No. Patient's initial sepsis screen is negative. Risk Assessment: Do you want to hurt yourself or someone else? Patient reports no desire to harm self or others. Onset of symptoms was December 20, 2019. 06:46 Method Of Arrival: Ambulatory mt2 06:46 Acuity: BARBARA 4 mt2 06:51 Coronavirus screen: Client denies travel out of the [place] in the last 14 days. At this mt2 time, the client does not indicate any symptoms associated with coronavirus-19. Triage Assessment: 06:48 General: Appears in no apparent distress. Behavior is calm, cooperative. Pain: mt2 Complains of pain in right hand Pain currently is 9 out of 10 on a pain scale. Quality of pain is described as aching. 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 - Social history:: Smoking status: Patient denies any tobacco usage or history of. Screenin:48 Abuse screen: Denies threats or abuse. Nutritional screening: No deficits noted. mt2 Tuberculosis screening: No symptoms or risk factors identified. Fall Risk None identified. Assessment: 07:03 General: Appears in no apparent distress. Behavior is calm, cooperative. Pain: rb1 Complains of pain in right hand Pain currently is 7 out of 10 on a pain scale. Neuro: Level of Consciousness is awake, alert, obeys commands, Oriented to person, place, time, situation. Cardiovascular: Capillary refill < 3 seconds. Respiratory: Airway is patent Respiratory effort is even, unlabored, Respiratory pattern is regular, symmetrical. Derm: Skin is pink, warm \T\ dry. 08:03 Reassessment: Patient appears in no apparent distress at this time. No changes from rb1 previously documented assessment. Vital Signs: 06:49 BP 115 / 76; Pulse 89; Resp 16; Temp 98.0; Pulse Ox 99% ; Weight 63.5 kg; Height 5 ft. mt2 5 in. (165.10 cm); Pain 9/10; 07:45 BP 129 / 84; Pulse 90; Resp 17; Pulse Ox 99% ; rb1 06:49 Body Mass Index 23.30 (63.50 kg, 165.10 cm) mt2 ED Course: 06:36 Patient arrived in ED. bp1 06:38 Erlin Liz PA is PHCP. jr8 06:38 Cal Slade MD is Attending Physician. jr8 06:39 Denisa Taylor RN is Primary Nurse. mt2 06:47 Triage completed. mt2 06:49 Arm band placed on left wrist. mt2 06:51 Patient has correct armband on for positive identification. Bed in low position. Call mt2 light in reach. Side rails up X 1. 07:16 XRAY Hand RIGHT 3 View In Process Unspecified. EDMS 07:34 Umer Ibarra MD is Referral Physician. jr8 08:03 No provider procedures requiring assistance completed. Patient did not have IV access rb1 during this emergency room visit. Administered Medications: No medications were administered Outcome: 07:35 Discharge ordered by . jr8 08:03 Discharged to home ambulatory. rb1 08:03 Condition: stable 08:03 Discharge instructions given to patient, Instructed on discharge instructions, follow up and referral plans. Demonstrated understanding of instructions, follow-up care, Prescriptions given X none 08:06 Patient left the ED. rb1 Signatures: Dispatcher [employer] EDNV Erlin Liz PA PA jr8 Dary Britt, RN RN rb1 Maddie Erwin bp1 Denisa Taylor RN RN mt2
--- NOTE | 2019-12-20 07:36 | EDPHYS ---
Physician Documentation [facility] Name: Gale Perez Age: 24 yrs Sex: Female : 1995 Arrival Date: 12/20/2019 Time: 06:36 Bed 6 Private MD: ED Physician Cal Slade HPI: 12/19 06:55 This 24 yrs old Female presents to ER via Ambulatory with complaints of HAND INJURY. jr8 06:55 The patient or guardian reports decreased range of motion, pain, swelling, tenderness. jr8 The complaints affect the right hand diffusely. Context: The problem was sustained on a street or driveway, resulted from a direct blow, by a door. Onset: The symptoms/episode began/occurred acutely, today. Modifying factors: The symptoms are alleviated by nothing, the symptoms are aggravated by movement. Associated signs and symptoms: The patient has no apparent associated signs or symptoms. Severity of symptoms: At their worst the symptoms were mild, in the emergency department the symptoms are unchanged. The patient has not experienced similar symptoms in the past. The patient has not recently seen a physician. Patient stated that she accidently slammed hand in car door . 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 - Social history:: Smoking status: Patient denies any tobacco usage or history of. ROS: 06:55 Eyes: Negative for injury, pain, redness, and discharge, ENT: Negative for injury, jr8 pain, and discharge, Neck: Negative for injury, pain, and swelling, Cardiovascular: Negative for chest pain, palpitations, and edema, Respiratory: Negative for shortness of breath, cough, wheezing, and pleuritic chest pain, Abdomen/GI: Negative for abdominal pain, nausea, vomiting, diarrhea, and constipation, Back: Negative for injury and pain, Skin: Negative for injury, rash, and discoloration, Neuro: Negative for headache, weakness, numbness, tingling, and seizure. 06:55 MS/extremity: Positive for decreased range of motion, pain, swelling, tenderness, of the right hand. Exam: 06:55 Constitutional: This is a well developed, well nourished patient who is awake, alert, jr8 and in no acute distress. Cardiovascular: Regular rate and rhythm with a normal S1 and S2. No gallops, murmurs, or rubs. Normal PMI, no JVD. No pulse deficits. Respiratory: Lungs have equal breath sounds bilaterally, clear to auscultation and percussion. No rales, rhonchi or wheezes noted. No increased work of breathing, no retractions or nasal flaring. Skin: Warm, dry with normal turgor. Normal color with no rashes, no lesions, and no evidence of cellulitis. Neuro: Awake and alert, GCS 15, oriented to person, place, time, and situation. Cranial nerves II-XII grossly intact. Motor strength 5/5 in all extremities. Sensory grossly intact. Cerebellar exam normal. Normal gait. 06:55 Musculoskeletal/extremity: Extremities: grossly normal except: noted in the right hand: Patient has pain, swelling, tenderness, and mild bruising to 4th and 5th metacarpals , Pulses: noted to be 2+ in the right radial artery and left radial artery, Perfusion: the extremity is normally perfused throughout, pink, warm, with brisk capillary refill, the right lateral hand over the 4th and 5th digits Tingling of extremity. Vital Signs: 06:49 BP 115 / 76; Pulse 89; Resp 16; Temp 98.0; Pulse Ox 99% ; Weight 63.5 kg; Height 5 ft. mt2 5 in. (165.10 cm); Pain 9/10; 07:45 BP 129 / 84; Pulse 90; Resp 17; Pulse Ox 99% ; rb1 06:49 Body Mass Index 23.30 (63.50 kg, 165.10 cm) mt2 Procedures: 07:33 Splinting: Splint applied to right hand using Orthoglass splint, applied by myself. jr8 Examined by me, post splint application: neurovascular intact, 2+ distal pulses palpable, brisk capillary refill noted, Patient tolerated well. MDM: 06:38 Patient medically screened. jr8 07:33 Data reviewed: vital signs, nurses notes, radiologic studies, plain films, and as a jr8 result, I will discharge patient. Data interpreted: Pulse oximetry: on room air is 99 %. Interpretation: normal. Counseling: I had a detailed discussion with the patient and/or guardian regarding: the historical points, exam findings, and any diagnostic results supporting the discharge/admit diagnosis, radiology results, the need for outpatient follow up, a orthopedic surgeon, to return to the emergency department if symptoms worsen or persist or if there are any questions or concerns that arise at home. 12/19 06:54 Order name: XRAY Hand RIGHT 3 View; Complete Time: 07:42 jr8 12/19 08:05 Order name: Sling; Complete Time: 08:05 rb1 12/19 08:05 Order name: Splint - Ulnar Gutter; Complete Time: 08:05 rb1 Administered Medications: No medications were administered Disposition: 12/20 05:47 Co-signature as Attending Physician, Cal Slade MD. 7 Disposition: 12/20/19 07:35 Discharged to Home. Impression: Displaced fracture of base of fifth metacarpal bone, right hand. - Condition is Stable. - Discharge Instructions: Metacarpal Fracture. - Medication Reconciliation Form, Thank You Letter, Antibiotic Education, Prescription Opioid Use form. - Follow up: Umer Ibarra MD; When: 2 - 3 days; Reason: Recheck today's complaints, Continuance of care, Re-evaluation by your physician. - Problem is new. - Symptoms have improved. Signatures: Dispatcher [employer] EDMS Erlin Liz PA PA jr8 Dary Britt, RN RN rb1 Cal Slade MD MD 7 Denisa Taylor RN RN mt2 Corrections: (The following items were deleted from the chart) 12/19 08:06 07:35 12/20/2019 07:35 Discharged to Home. Impression: Displaced fracture of base of rb1 fifth metacarpal bone, right hand. Condition is Stable. Forms are Medication Reconciliation Form, Thank You Letter, Antibiotic Education, Prescription Opioid Use. Follow up: Umer Ibarra; When: 2 - 3 days; Reason: Recheck today's complaints, Continuance of care, Re-evaluation by your physician. Problem is new. Symptoms have improved. jr8
--- NOTE | 2019-12-20 07:40 | RAD REPORT ---
EXAM DESCRIPTION: RAD - Hand Right 3 View - 12/20/2019 7:16 am CLINICAL HISTORY: Right hand pain status post injury FINDINGS: Mildly to moderately displaced oblique fracture involves the proximal metaphysis fifth met acarpal. No dislocation is seen
[2019-12-20 08:10] VITALS: BP 115/76; TEMP 98; O2SAT 99
== END 2019-12-20 08:06 | disposition home or self-care (01) ==
LOC: ER 06:31
PROC: 2W3CX1Z Immobilization of Right Lower Arm using Splint (ICD-10-PCS; principal; 2019-12-20)
DX: S62.316A Displaced fracture of base of fifth metacarpal bone, right hand, initial encounter for closed fracture (principal); W22.8XXA Striking against or struck by other objects, initial encounter; Y93.9 Activity, unspecified; Y92.9 Unspecified place or not applicable; F41.8 Other specified anxiety disorders
CPT/HCPCS: 99283